=== PATIENT | female | born 1980 | race Caucasian/White ===

== ENCOUNTER 2019-07-08 15:58 | Emergency (ER) | payer OTHER ==
[2019-07-08 18:57] LABS: URINE PH (Dip) POC 6.5 (5.0-8.5)
[2019-07-08 18:57] LABS: URINE BLOOD (Dip) POC 2+ (NEGATIVE); URINE GLUCOSE (Dip) POC Negative (NEGATIVE); URINE KETONES (Dip) POC Negative (NEGATIVE); URINE LEUKOCYTE EST (Dip) POC Negative (NEGATIVE); URINE NITRITE (Dip) POC Negative (NEGATIVE); URINE TOTAL PROTEIN POC Negative (NEGATIVE)
[2019-07-08] MEDS: KETOROLAC 60 MG INJ IM (19:40)
== END 2019-07-08 19:49 | disposition home or self-care (01) ==
LOC: E/R 15:58
DX: M54.5 Low back pain (principal); R31.9 Hematuria, unspecified; J45.909 Unspecified asthma, uncomplicated; Z79.82 Long term (current) use of aspirin
CPT/HCPCS: 81003; 96372; 99284-25